=== PATIENT | male | born 1965 | race Caucasian/White ===

== ENCOUNTER 2018-01-02 14:55 | Emergency (ER) | payer MEDICARE ==
[~2018-01-02] VITALS: Wt 90.4 kg
[2018-01-02] MEDS ORDERED: CATAPRES0.1 M1 (15:06)
[2018-01-02] MEDS ORDERED: LISINOPRIL2.5 MG (15:06)
[2018-01-02] MEDS ORDERED: ALBUTEROL1.25 MG/3 (15:10)
[2018-01-02 15:29] LABS: EOS % 0.1 % (0.0-4.0); HEMATOCRIT 42.2 % (42.0-52.0); HEMOGLOBIN 14.5 g/dL (13.5-18.0); LYMPH# 1.3 (1.50-4.00); MEAN CELL VOLUME 98 fl (78-100); MEAN CORPUSCULAR HEMOGLOBIN 34 pg (27-31); MEAN CORPUSCULAR HGB CONC 34 g/dL (33-37); MEAN PLATELET VOLUME 9.6 fl (7.4-10.4); MONO # 0.8 (0.20-0.80); NEU # 5.2 (1.40-6.50); PLATELET COUNT 142 K/mm3 (130-400); RED BLOOD COUNT 4.29 M/mm3 (4.20-5.60); RED CELL DISTRIBUTION WIDTH 13.3 % (11.5-14.5); WHITE BLOOD COUNT 7.2 K/mm3 (4.8-10.8)
[2018-01-02 15:48] LABS: ALBUMIN 4.1 g/dL (3.5-5.0); BUN/CREATININE RATIO 8.5 (6.0-26.0); CALCIUM 8.4 mg/dL (8.4-10.2); POTASSIUM 3.8 mmol/L (3.6-5.0); TOTAL BILIRUBIN 0.5 mg/dL (0.2-1.3); TOTAL PROTEIN 7.8 g/dL (6.3-8.2)
[2018-01-02 15:50] LABS: LIPASE 289 U/L (23-300)
[2018-01-02 15:51] LABS: D-DIMER 0.57 mg/L FEU (0.15-0.50)
[2018-01-02 16:03] LABS: CKMB ISOENZYME 7.7 ng/mL (0.6-3.5); TROPONIN-I < 0.03 ng/mL (0.00-0.06)
[2018-01-02 16:57] LABS: URINE APPEARANCE CLEAR; URINE BILIRUBIN NEGATIVE (NEGATIVE); URINE BLOOD NEGATIVE (NEGATIVE); URINE COLOR YELLOW; URINE GLUCOSE NEGATIVE (NEGATIVE); URINE KETONE NEGATIVE (NEGATIVE); URINE LEUKOCYTE ESTERASE NEGATIVE (NEGATIVE); URINE NITRATE NEGATIVE (NEGATIVE); URINE PROTEIN(semi-quant) NEGATIVE (NEGATIVE); URINE UROBILINOGEN NORMAL (NORMAL)
[2018-01-02 16:58] LABS: URINE WBC 0-1 /hpf (0-3)
[2018-01-02] MEDS ORDERED: PREDNISONE20 M1 PO (18:21)
[2018-01-02 18:37] VITALS: BP 135/87
[2018-01-03] MEDS ORDERED: ADVAIR DISKUS1 DS2 IH (14:40)
[2018-01-03] MEDS ORDERED: RT ALBUTEROL CC18 GM IH (14:40)
== END 2018-01-02 18:48 | disposition home or self-care (01) ==
LOC: ED 14:55
PROVIDERS: Nurse Practitioner Family
DX: F10.129 Alcohol abuse with intoxication, unspecified (principal); R51 Headache; I10 Essential (primary) hypertension; J45.998 Other asthma; R06.82 Tachypnea, not elsewhere classified; J98.4 Other disorders of lung; R09.02 Hypoxemia; Z87.891 Personal history of nicotine dependence; G40.909 Epilepsy, unspecified, not intractable, without status epilepticus
CPT/HCPCS: J1100; J7030; Q9967

== ENCOUNTER 2018-01-04 17:13 | Emergency (ER) | payer MEDICARE ==
[~2018-01-04] VITALS: Ht 172.7 cm; Wt 79.5 kg
[~2018-01-04 17:13] MED LIST: ADVAIR DISKUS1 DS2 IH; ALBUTEROL1.25 MG/3; CATAPRES0.1 M1; LISINOPRIL2.5 MG; PREDNISONE20 M1 PO; RT ALBUTEROL CC18 GM IH
[2018-01-04 18:23] LABS: HEMATOCRIT 42.5 % (42.0-52.0); HEMOGLOBIN 14.8 g/dL (13.5-18.0); LYMPH# 1.6 (1.50-4.00); MEAN CELL VOLUME 98 fl (78-100); MEAN CORPUSCULAR HEMOGLOBIN 34 pg (27-31); MEAN CORPUSCULAR HGB CONC 35 g/dL (33-37); MEAN PLATELET VOLUME 10.4 fl (7.4-10.4); MONO # 1.2 (0.20-0.80); PLATELET COUNT 123 K/mm3 (130-400); RED BLOOD COUNT 4.32 M/mm3 (4.20-5.60); RED CELL DISTRIBUTION WIDTH 13.4 % (11.5-14.5)
[2018-01-04 18:24] LABS: NEU # 9.1 (1.40-6.50)
[2018-01-04 18:33] LABS: BUN/CREATININE RATIO 10.2 (6.0-26.0); CALCIUM 8.1 mg/dL (8.4-10.2); POTASSIUM 3.6 mmol/L (3.6-5.0)
[2018-01-04] MEDS ORDERED: ALBUTEROL2.5 MG/3 M IH (19:12)
[2018-01-04] MEDS ORDERED: BUDESONIDE0.5 MG/2 M IH (19:12)
[2018-01-04] MEDS ORDERED: PERFOROMIS20 MCG/2 M IH (19:12)
[2018-01-04 19:26] VITALS: BP 146/73
== END 2018-01-04 19:26 | disposition home or self-care (01) ==
LOC: ED 17:13
PROVIDERS: Family Medicine
DX: J45.909 Unspecified asthma, uncomplicated (principal); F10.20 Alcohol dependence, uncomplicated; Y90.8 Blood alcohol level of 240 mg/100 ml or more; T38.0X6A Underdosing of glucocorticoids and synthetic analogues, initial encounter; T48.6X6A Underdosing of antiasthmatics, initial encounter; Z91.120 Patient's intentional underdosing of medication regimen due to financial hardship; Z79.899 Other long term (current) drug therapy; F17.200 Nicotine dependence, unspecified, uncomplicated; I10 Essential (primary) hypertension; Z76.0 Encounter for issue of repeat prescription
CPT/HCPCS: J1040